=== PATIENT | male | born 1960 ===

== ENCOUNTER 2023-09-14 05:25 | Day surgery (SDC) | payer OTHER ==
[2023-09-08 10:43] LABS: URINE APPEARANCE Clear; URINE BILIRRUBIN Negative (NEGATIVE); URINE BLOOD Trace; URINE COLOR Yellow; URINE GLUCOSE Negative (NEGATIVE); URINE LEUKOCYTE Trace; URINE NITRATE Negative
[2023-09-08 10:44] LABS: HEMATOCRIT 34.9 % (39.0-48.0); HEMOGLOBIN 12.4 g/dL (13-16.00); MEAN CELL VOLUME 81.7 fL (80.0-100.00); MEAN CORPUSCULAR HGB CONC 35.5 g/dl (32.0-36.0); PLATELET COUNT 180 K/uL (150-450); RED BLOOD COUNT 4.27 M/uL (4.00-6.00)
[2023-09-08 10:47] LABS: URINE EPITHELIAL CELLS 1.9 uL (0.0-38.8); URINE WBC 2.7 uL (0.0-23.2)
[2023-09-08 11:01] LABS: URINE PROTEIN 100 (NEGATIVE)
[2023-09-08 11:15] LABS: INR 1.09; PROTHROMBIN TIME 11.4 SECONDS (9.0-11.5)
[2023-09-08 11:27] LABS: ALBUMIN 4.2 gm/dL (3.4-5.0); BILIRUBIN TOTAL 1.52 mg/dL (0.3-1.2); CALCIUM 10.1 mg/dL (8.5-10.1); CREATININE SERUM 0.85 mg/dL (0.70-1.30); GFR 91.04; POTASSIUM 3.8 mEq/L (3.5-5.1); TOTAL PROTEIN 8.2 gm/dL (6.4-8.2)
[~2023-09-14] VITALS: Ht 188 cm; Wt 127.0 kg
[~2023-09-14 05:25] MED LIST: CARVEDILOL12.5 M1 PO; ELIQUIS5 MG PO; FOSAMAX70 MG PO; HORIZANT300 MG PO; HYDRALAZINE HC100 MG PO; JANUMET 50-1,01 EACH PO; TAMS0.4C PO; VITAMIN D310 MCG/1 M PO
[2023-09-14] MEDS ORDERED: CLINDAMYCIN PHOSPHATE 150 MG/ML (900mg) IV ONE (13:45)
[2023-09-14] MEDS ORDERED: BUPIVACAINE HCL 30 ML VIAL IV ONE (13:45)
[2023-09-14] MEDS ORDERED: SUGAMMADEX SODIUM 200 MG/2 ML VIAL IV ONE (15:15)
[2023-09-14] MEDS ORDERED: CARVEDILOL 12.5 MG TABLET PO ONE (19:00)
[2023-09-14] MEDS ORDERED: hydrALAZINE HCL 50 MG TABLET PO ONE (19:00)
== END 2023-09-14 21:20 | disposition home or self-care (01) ==
LOC: CIR.AMB 05:25
PROVIDERS: ATTEND Orthopaedic Surgery Hand Surgery
DX: M24.541 Contracture, right hand (principal); M67.843 Other specified disorders of tendon, right hand; Z91.041 Radiographic dye allergy status; Z88.0 Allergy status to penicillin; Z91.013 Allergy to seafood